=== PATIENT | female | born 1990 | race Caucasian/White ===

== ENCOUNTER → 2018-07-20 | Outpatient (CLI) | payer OTHER ==
[~2018-07-20] MED LIST: Carafate1 GM/10 ML PO; Prilosec Otc20 MG PO; SULTRIDS PO
== END | disposition home or self-care (01) ==
LOC: LAB SHORT 16:45 → LAB 16:45
DX: J02.9 Acute pharyngitis, unspecified (principal)
CPT/HCPCS: 87070; 87147; 87205

== ENCOUNTER 2019-03-13 12:14 | Emergency (ER) | payer OTHER ==
[~2019-03-13] VITALS: Ht 165.1 cm; Wt 63.5 kg
[2019-03-13] MEDS ORDERED: [UNRECOGNIZED DRUG - OTHER] PO (12:55)
== END 2019-03-13 14:05 | disposition home or self-care (01) ==
LOC: ER 12:14
DX: J01.90 Acute sinusitis, unspecified (principal); Z88.0 Allergy status to penicillin; Z79.899 Other long term (current) drug therapy; F17.210 Nicotine dependence, cigarettes, uncomplicated
CPT/HCPCS: 87081; 87147; 87430; 99284; J1100; Q0163

== ENCOUNTER 2019-06-09 21:45 | Emergency (ER) | payer OTHER ==
[~2019-06-09] VITALS: Ht 167.6 cm; Wt 65.8 kg
[~2019-06-09 21:45] MED LIST changes: +[UNRECOGNIZED DRUG - OTHER] PO
== END 2019-06-09 23:26 | disposition home or self-care (01) ==
LOC: ER 21:45
DX: R51 Headache (principal); R59.0 Localized enlarged lymph nodes; F17.210 Nicotine dependence, cigarettes, uncomplicated; Z88.0 Allergy status to penicillin
CPT/HCPCS: 99283; J1100; Q0163

== ENCOUNTER 2019-08-05 11:12 | Day surgery (SDC) | payer OTHER ==
[~2019-08-05] VITALS: Ht 167.6 cm; Wt 66.6 kg
[2019-08-05] MEDS ORDERED: ACYCLOVIR400 MG PO (12:05)
[2019-08-05] MEDS ORDERED: KURVELO1 EACH PO (12:06)
--- NOTE | 2019-08-05 12:55 | NUR ---
08/05/19 1255 Cecilia Coe ORSC.JAR UPPER PREP ORSC.KNM LOWER PREP
--- NOTE | 2019-08-05 14:41 | NUR ---
08/05/19 1441 Nicolasa Galicia RECEIVED REPORT FROM [facility] PAL AT 142 PATIENT IN RECLINER, APPEARS SLEEPY BUT DOES ROUSE WITH VERBAL STIMULI. SHE GETS TEARFUL AND ADMITS TO BEING PAIN 9/10 AND FEELING NAUSEOUS. MEDICATED FOR BOTH PER MD ORDER. SHE ASKS ME TO CALL HER RIDE AND ASK HIM TO COME AND THIS IS DONE. WHEN I COME BACK IN THE ROOM FROM THE PHONE CALL PATIENT IS AGAIN SLEEPING AND I HAVE TO WAKE HER TO ASK AND SHE STATES NAUSEA IS GONE AND PAIN IS STILL A 9/10. WILL ENCOURAGE PO FLUIDS AND FOOD TO FACILITATE ORAL PAIN MEDS AND CONTINUE WITH IV PAIN MEDS AT THIS TIME
== END 2019-08-05 15:42 | disposition home or self-care (01) ==
LOC: ORSCSDS 11:12
PROVIDERS: Obstetrics & Gynecology
PROC: 0U5F4ZZ Destruction of Cul-de-sac, Percutaneous Endoscopic Approach (ICD-10-PCS; principal; 2019-08-05 12:30)
DX: N94.6 Dysmenorrhea, unspecified (principal); N92.0 Excessive and frequent menstruation with regular cycle; N94.10 Unspecified dyspareunia; R10.2 Pelvic and perineal pain; K66.0 Peritoneal adhesions (postprocedural) (postinfection); F17.210 Nicotine dependence, cigarettes, uncomplicated; F32.9 Major depressive disorder, single episode, unspecified; Z79.899 Other long term (current) drug therapy
CPT/HCPCS: 88305; J0171; J0690; J1100; J2250; J2405; J2704; J3010; J7120

== ENCOUNTER 2020-07-25 10:13 | Day surgery (SDC) | payer OTHER ==
[~2020-07-25] VITALS: Ht 165.1 cm; Wt 73.5 kg
[~2020-07-25 10:13] MED LIST changes: +ACYCLOVIR400 MG PO; +Bentyl10 MG PO; +FAMO20; +KURVELO1 EACH PO
--- NOTE | 2020-07-25 11:07 | NUR ---
Ambulatory in Day Surgery History, Chart, Medications and Allergies reviewed before start of procedure.Patient confirms NPO status and agrees with scheduled surgery. Patient states colon prep results clear. Patient States Post-Procedure ride home has been arranged WITH FRIEND.
--- NOTE | 2020-07-25 11:11 | NUR ---
07/25/20 Jorge Luis [place] PATIENT DETERMINED TO BE ASA APPROPRIATE FOR PROPOFOL SEDATION PRIOR TO START OF PROCEDURE BY DR. GIORDANO 3-LEAD EKG REVIEWED WITH PHYSICIAN PRIOR TO START OF PROCEDURE.Patient to ENDO 1 History, Chart, Medications and Allergies reviewed before start of procedure. MONITOR INTACT WITH CONTINUOUS PULSE OXIMETRY AND INTERMITTENT BP.
--- NOTE | 2020-07-25 12:21 | NUR ---
Patient up to Ambulate independently. Gait steady. Discharge instructions reviewed with patient. Patient verbalizes understanding. Copy given to patient to take home. Patient States Post-Procedure ride home has been arranged. Discharged via wheelchair to private car for ride home.
== END 2020-07-25 12:25 | disposition home or self-care (01) ==
LOC: ORSCMMR 10:13 → ORD 11:00 → ORSCMMR 12:25
PROVIDERS: Internal Medicine Gastroenterology
PROC: 0DB78ZX Excision of Stomach, Pylorus, Via Natural or Artificial Opening Endoscopic, Diagnostic (ICD-10-PCS; principal; 2020-07-25 11:00)
PROC: 0DBE8ZX Excision of Large Intestine, Via Natural or Artificial Opening Endoscopic, Diagnostic (ICD-10-PCS; principal; 2020-07-25 11:00)
PROC: 0DB98ZX Excision of Duodenum, Via Natural or Artificial Opening Endoscopic, Diagnostic (ICD-10-PCS; principal; 2020-07-25 11:00)
PROC: 0DB48ZX Excision of Esophagogastric Junction, Via Natural or Artificial Opening Endoscopic, Diagnostic (ICD-10-PCS; principal; 2020-07-25 11:00)
PROC: 0DB58ZX Excision of Esophagus, Via Natural or Artificial Opening Endoscopic, Diagnostic (ICD-10-PCS; principal; 2020-07-25 11:00)
DX: R11.2 Nausea with vomiting, unspecified (principal); K59.09 Other constipation; K21.9 Gastro-esophageal reflux disease without esophagitis; R10.84 Generalized abdominal pain; Z79.899 Other long term (current) drug therapy; F17.210 Nicotine dependence, cigarettes, uncomplicated
CPT/HCPCS: 88305; 88312; 88342; A9270; J2250; J2704; J7120

== ENCOUNTER → 2022-02-21 | Outpatient (CLI) | payer OTHER ==
[2022-02-21 10:12] LABS: BASOPHILS ABSOLUTE AUTO 0.04 K/mm3 (0.00-0.23); BASOPHILS PERCENT AUTO 1 % (0-2); EOSINOPHILS ABSOLUTE AUTO 0.19 K/mm3 (0.00-0.68); EOSINOPHILS PERCENT AUTO 2 % (0-6); Hematocrit 41.6 % (33.0-51.0); Hemoglobin 13.7 g/dL (11.5-16.0); IMMATURE GRAN ABSOLUTE AUTO 0.06 K/mm3 (0.00-0.10); IMMATURE GRAN PERCENT AUTO 1 % (0-1); LYMPHOCYTES PERCENT AUTO 30 % (21-46); MONOCYTES ABSOLUTE AUTO 0.64 K/mm3 (0.16-1.47); MONOCYTES PERCENT AUTO 8 % (4-13); Mean Corpuscular HGB 33.3 pg (26.0-34.0); Mean Corpuscular HGB Conc 32.9 g/dL (31.5-36.5); Mean Corpuscular Volume 101 fL (80-100); Mean Platelet Volume 10.1 fL (9.1-12.4); NEUTROPHILS PERCENT AUTO 59 % (41-73); Platelet Count 208 K/mm3 (150-400); RDW Coefficient Variation 13.7 % (11.7-14.2); RDW Standard Deviation 51.3 fL (35.1-46.3); Red Blood Cell Count 4.12 M/mm3 (3.80-5.20); White Blood Cell Count 8.03 K/mm3 (4.00-11.30)
[2022-02-21 10:41] LABS: Albumin, Blood 3.6 g/dL (3.4-5.0); Albumin/Globulin Ratio 1.3 (0.8-1.8); Bilirubin, Total 0.4 mg/dL (0.1-1.0); Bun/Creatinine Ratio 14.2 (12.0-20.0); Creatinine, Blood 0.63 mg/dL (0.40-1.00); Globulin, Blood 2.8 g/dL (2.2-4.0); Total Protein, Blood 6.4 g/dL (6.4-8.2)
== END | disposition home or self-care (01) ==
LOC: LAB 10:05 → LAB SHORT 10:05
PROVIDERS: General Practice
DX: R51.9 Headache, unspecified (principal)
CPT/HCPCS: 80053; 85025

== ENCOUNTER 2022-03-03 21:39 | Emergency (ER) | payer OTHER ==
[~2022-03-03] VITALS: Ht 167.6 cm; Wt 63.5 kg
== END 2022-03-03 23:05 | disposition home or self-care (01) ==
LOC: ER 21:39
DX: T63.441A Toxic effect of venom of bees, accidental (unintentional), initial encounter (principal); L53.0 Toxic erythema; R20.0 Anesthesia of skin; M79.89 Other specified soft tissue disorders; F17.210 Nicotine dependence, cigarettes, uncomplicated; Y92.9 Unspecified place or not applicable; Z88.0 Allergy status to penicillin; Z79.899 Other long term (current) drug therapy
CPT/HCPCS: 99282

== ENCOUNTER 2022-05-13 23:51 | Emergency (ER) | payer OTHER ==
[~2022-05-13] VITALS: Ht 165.1 cm; Wt 65.8 kg
== END 2022-05-14 01:11 | disposition home or self-care (01) ==
LOC: ER 23:51
DX: L98.8 Other specified disorders of the skin and subcutaneous tissue (principal); F17.210 Nicotine dependence, cigarettes, uncomplicated; Z88.0 Allergy status to penicillin; Z79.899 Other long term (current) drug therapy
CPT/HCPCS: A9270